=== PATIENT | male | born 1965 | race Caucasian/White ===

== ENCOUNTER 2019-12-18 02:41 | Day surgery (SDC) | payer OTHER, SELFPAY ==
[2019-12-16 10:41] VITALS: BMI 30.7
[2019-12-18 11:57] VITALS: BP 144/107; PULSE 90; RESP 18; TEMP 36.8; O2SAT 96; BMI 29.1
[2019-12-18] MEDS: LACTATED RINGERS 1,000 ML 150 ML IV CONT (12:04)
--- NOTE | 2019-12-18 12:26 | WPDANESEPPF ---
Anes - Initial Pre Proc Eval Procedure: Operation Date: 12/18/19 13:00 Proposed Procedures p Esophagogastroduodenoscopy & Screening Colonoscopy - Don Kamara DO Date/Time: 12/18/19 12:26 Surgeon: Don Kamara DO Pre Op Diagnosis: Heartburn/ Neoplasm Screening Patient Data Age: 54 Gender: M Height: 5 ft 9 in Weight: 89.6 kg Last Vital Signs Temp 36.8 C 12/18/19 11:57 Pulse 90 12/18/19 11:57 Resp 18 12/18/19 11:57 BP 144/107 H 12/18/19 11:57 Pulse Ox 96 12/18/19 11:57 Allergies Allergy/AdvReac Type Severity Reaction Status Date / Time LACTOSE INTOL AdvReac Severe GI UPSET Uncoded 12/18/19 11:55 Home Medications Medication Instructions Recorded Confirmed Type ibuprofen 600 mg tablet 600 mg PO Q6H PRN 11/17/19 12/16/19 History omeprazole 10 mg capsule,delayed 10 mg PO DAILY 11/17/19 12/18/19 History release Patient hx anesthesia problems: none Family hx anesthesia problems: none [facility] Past Medical History Medical History GERD (gastroesophageal reflux disease) History of kidney stones Surgical History Surgical History H/O knee surgery Family History Family History Father Diabetes mellitus Cerebrovascular accident Mother Kidney stones Unknown Diabetes mellitus Tuberculosis Cerebrovascular accident Kidney stones Social History Social History Smoking status: Never smoker Alcohol intake: current Substance use: never Gender identity (if verbalized by the patient): Male Anes - Eval Final PreProcedure Day of Procedure 12/18/19 12:26 Patient weight: overweight Heart: regular rate and rhythm Lungs: clear to auscultation Airway: Mallampati scale class II Neurological: alert and oriented Last oral intake: >/= 8 hours ASA classification: II Emergent: no Anesthetic plan: proceed Anesthesia type and monitoring: general GIVS and standard monitoring Informed Consent: The patient's anesthetic plan and its attendant risks and benefits were discussed with the patient/family/POA. Questions were solicited and answers provided to the satisfaction of the patient/family/POA.
--- NOTE | 2019-12-18 13:05 | WPDHPUPDATE1 ---
History and Physical Update Update Date/Time: 12/18/19 13:05 History and Physical has been reviewed, including an updated exam of the patient. There are NO changes in the patient's condition. Risks, benefits, and alternatives have been discussed and questions answered. Patient agrees to proceed with procedure.
[2019-12-18] MEDS: SIMETHICONE ORAL SUSPENSION 20 MG/0.3 ML 30 ML BOTTLE 0.6 ML IRRIGATION (13:31)
[2019-12-18 13:39] VITALS: BP 131/76; PULSE 87; RESP 18; O2SAT 94
[2019-12-18 13:49] VITALS: BP 105/71; PULSE 73; RESP 16; O2SAT 94
[2019-12-18 13:59] VITALS: BP 115/73; PULSE 69; RESP 15; O2SAT 94
== END 2019-12-18 14:32 | disposition home or self-care (01) ==
PROVIDERS: Visit Provider Surgery
PROC: 0DJ08ZZ Inspection of Upper Intestinal Tract, Via Natural or Artificial Opening Endoscopic (ICD-10-PCS; CPT 43235; principal; 2019-12-18 13:00)
DX: K21.0 Gastro-esophageal reflux disease with esophagitis (principal); K44.9 Diaphragmatic hernia without obstruction or gangrene; Z12.11 Encounter for screening for malignant neoplasm of colon; K64.8 Other hemorrhoids
CPT/HCPCS: 43239; 45378; 87081; 88305; J2704; J7120

== ENCOUNTER 2021-10-12 11:04 | Emergency (ER) | payer OTHER, SELFPAY ==
[2021-10-12 11:15] VITALS: BP 129/87; PULSE 72; RESP 16; TEMP 36.2; O2SAT 99
--- NOTE | 2021-10-12 11:56 | ED.GENADULT ---
HPI - General Adult General Chief complaint: Unspecified Stated complaint: High Blood Pressure Source: patient Mode of arrival: ambulatory Limitations: no limitations History of Present Illness HPI narrative: Patient is a 56-year-old male who presents to the [facility] via POV for evaluation of a blood pressure check. He states he visited [facility] and used the blood pressure machine and it became concerned when his reading was 155/97. He spoke to the pharmacist about his reading who recommended he be seen in an urgent care since he does not have a PCP. Additionally, he reports intermittent generalized headaches, lightheadedness, and tinnitus. He states tinnitus and lightheadedness has resolved. Baseline BPs unknown. Denies taking OTC meds or prescription medications. Nothing improves or worsen symptoms. Related Data Home Medications Medication Instructions Recorded Confirmed ibuprofen 600 mg tablet 600 mg PO Q6H PRN 11/17/19 12/16/19 Allergies Allergy/AdvReac Type Severity Reaction Status Date / Time LACTOSE INTOL AdvReac Severe GI UPSET Uncoded 10/12/21 11:12 Review of Systems Review of Systems: Pertinent negatives: fever, chills, sweats, change in appetite, poor p.o. intake, ear pain, muffled hearing, ear drainage, severe persistent headache, dizziness, lymphadenopathy, vision changes, swelling, erythema, weakness, syncope, vertigo, LOC, seizure activity, memory loss, difficulty with coordination/gait/equilibrium, paresthesias, abdominal pain, nausea, vomiting, diarrhea, constipation, shortness of breath, cough, chest pain, and heart palpitations/murmurs. [facility] Past Medical History Medical History GERD (gastroesophageal reflux disease) History of kidney stones Surgical History Surgical History H/O knee surgery Family History Family History Father Diabetes mellitus Cerebrovascular accident Mother Kidney stones Unknown Diabetes mellitus Tuberculosis Cerebrovascular accident Kidney stones Social History Social History Smoking status: Never smoker Alcohol intake: current Substance use: never Gender identity (if verbalized by the patient): Male Comments I have reviewed and agree with the patient's past medical, surgical, social, and family hx as documented by the RN. There is no relevant family history pertinent to the presenting complaint. Exam Narrative: GENERAL: Well-appearing, well-nourished, and in no acute distress. HEAD: Normocephalic, atraumatic. No sinus tenderness or facial swelling appreciated. EYES: PERRLA and EOMI. No evidence of erythema, swelling, or drainage. ENT: Bilateral external ears and ear canals normal. Bilateral TMs are normal.No TM perforation. Nares clear, no rhinorrhea or epistaxis. Bilateral turbinates without erythema/ swelling. Mucous membranes moist and pink. Uvula is midline without erythema and swelling. No evidence of petechial rash, cobblestoning, lesions, ulcers, erythema, swelling, exudates, peritonsillar abscess, tenting, or drooling. Breath odor and voice normal. NECK: Supple. No Lymphadenopathy or nuchal rigidity appreciated. CHEST: Bilateral lung sanders are clear to auscultation. No respiratory distress. No evidence of cough or pleuritic cp upon examination. HEART: Regular rate and rhythm. No murmur, gallop, or rub heard. EXTREMITIES: Normal range of motion. No edema. SKIN: Warm, dry, no rash. NEURO: No focal deficits. Alert and oriented x3. Course Vital Signs Vital signs: Vital Signs Temperature 97.1 F L 10/12/21 11:15 Pulse Rate 72 10/12/21 11:15 Respiratory Rate 16 10/12/21 11:15 Blood Pressure 129/87 10/12/21 11:15 Pulse Oximetry 99 10/12/21 11:15 Temperature 97.1 F L 1
== END 2021-10-12 12:18 | disposition home or self-care (01) ==
PROVIDERS: Emergency Provider Nurse Practitioner Family
DX: R03.0 Elevated blood-pressure reading, without diagnosis of hypertension (principal)
CPT/HCPCS: 99211; G0463

== ENCOUNTER → 2022-02-23 09:41 | Outpatient (CLI) | payer OTHER, SELFPAY ==
--- NOTE | ~2022-02-23 | MR_ITS ---
EXAMINATION: MR shoulder RT wo con DATE: 02/23/2022 10:12 INDICATION: Right rotator cuff tear presenting with right shoulder pain and limited range of motion TECHNIQUE: Magnetic resonance imaging (MRI) of the right shoulder was performed without intravenous c ontrast. Sequences included axial PD-weighted FS FSE, coronal oblique PD-weighted FS FSE, coronal obl ique T2-weighted FS FSE, sagittal PD-weighted FS FSE, and sagittal T1-weighted SE. COMPARISON: Right shoulder radiographs dated 05/24/2019 FINDINGS: Coracoacromial arch: The acromion undersurface is minimally curved in morphology (type I-II). The coracoacromial ligament is normal. Moderate acromioclavicular osteoarthritis. Rotator cuff: Mild supraspinatus and infraspinatus tendinopathy. There is a small partial-thickness intrasubstance tear extending for approximately 1 cm AP along the superior facet footplate of the supraspinatus tend on and involving up to one half of the tendon thickness. The teres minor tendon is normal. Mild subsc apularis tendinopathy. Small longitudinal split tear extending 1 cm medially from the lateral margin of the lesser tuberosity footplate between the portion of the bursal side of the tender contiguous wi th the intact transverse humeral ligament and the deeper portion of the tendon inserting upon the les ser tuberosity. The long head of the biceps tendon is partially subluxed across the medial rim of the intertubercular groove into the split tendon tear defect. Normal rotator cuff muscle bulk and signal . Biceps tendon, glenoid labrum and glenohumeral cartilage: There is mild tendinopathy and longitudinal split tearing of the long head of the biceps tendon occur ring at the distal margin of the intertubercular groove and extending into the intra-articular portio n of the tendon. Glenoid labrum is normal. Partial-thickness cartilage loss with deep fissuring and p rominent underlying subarticular cystic change at the inferior third of the glenoid. Shallow chondral ulceration along the inferomedial aspect of the humeral head. Fluid: Physiologic amount of fluid in the glenohumeral joint and biceps tendon sheath. No loose osteochondr al bodies. Mild increased fluid signal in the subacromial/subdeltoid bursa consistent with minimal bu rsitis. Bones: Bone alignment is normal. No fracture or pathologic marrow replacing process. IMPRESSION: 1. Mild supraspinatus and infraspinatus tendinopathy with small intrasubstance tear along the superio r facet footplate of the supraspinatus tendon. 2. Mild subscapularis tendinopathy with small longitudinal split tear along the lateral margin of the lesser tuberosity footplate. 3. Mild tendinopathy and longitudinal split tearing at the junction of the intra-articular and extra- articular portions of the long head biceps tendon. 4. 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 5. Moderate acromioclavicular osteoarthritis. Reviewed, dictated and finalized at location A. IMPRESSION: 1. Mild supraspinatus and infraspinatus tendinopathy with small intrasubstance tear along the superior facet footplate of the supraspinatus tendon. 2. Mild subscapularis tendinopathy with small longitudinal split tear along the lateral margin of the lesser tuberosity footplate. 3. Mild tendinopathy and longitudinal split tearing at the junction of the intr a-articular and extra-articular portions of the long head biceps tendon. 4. Mild right glenohumeral osteoarthritis with high-grade chondromalacia with p rominent subarticular cystic change at the inferior glenoid. 5. Moderate acromioclavicular osteoarthritis.
== END ==
PROVIDERS: PCP Orthopaedic Surgery; Visit Provider Orthopaedic Surgery
DX: M19.011 Primary osteoarthritis, right shoulder (principal)
CPT/HCPCS: 73221